=== PATIENT | female | born 1990 | race Caucasian/White ===

== ENCOUNTER 2017-01-27 06:59 | Emergency (ER) | payer OTHER ==
[~2017-01-27] VITALS: Ht 160 cm; Wt 97.5 kg
[~2017-01-27 06:59] MED LIST: IBUPROFEN 600600 M1 PO; NAPROSYN500 MG PO; PHENERGAN 25 MG25 M1 PO; TRINATE TABLET1 TAB PO
[2017-01-27 07:30] LABS: ABSOLUTE NEUTROPHILS 3.6 thou/uL (1.4-8.2); BASOPHILS 1.4 % (0.0-2.0); EOSINOPHILS 3.6 % (0.0-3.0); HEMATOCRIT 38.7 % (37.0-47.0); HEMOGLOBIN 13.2 gm/dL (12.0-15.0); LYMPHOCYTES 32.1 % (24.0-44.0); MCH 28.6 pg (26.0-34.0); MCHC 34.2 g/dL (28.0-37.0); MCV 83.6 fL (80.0-100.0); MONOCYTES 7.8 % (1.0-8.0); PLATELET COUNT 247 thou/uL (150-400); POLYS 55.1 % (36.0-66.0); RBC 4.63 mil/uL (4.20-5.00); RDW 13.8 % (10.5-14.5); WBC 6.6 thou/uL (4.0-11.0)
[2017-01-27 07:38] LABS: MANUAL DIFF NO
[2017-01-27] MEDS ORDERED: NAPROSYN500 MG PO (08:50)
[2017-01-27 08:55] VITALS: BP 101/56
== END 2017-01-27 09:07 | disposition home or self-care (01) ==
LOC: ER 06:59
PROVIDERS: Emergency Medicine
DX: N93.8 Other specified abnormal uterine and vaginal bleeding (principal); N94.6 Dysmenorrhea, unspecified

== ENCOUNTER 2017-04-25 11:13 | Emergency (ER) | payer OTHER ==
[~2017-04-25] VITALS: Ht 160 cm; Wt 97.5 kg
[2017-04-25 12:03] LABS: URINE BILIRUBIN NEGATIVE (Negative); URINE BLOOD NEGATIVE (Negative); URINE CLARITY CLEAR; URINE COLOR YELLOW; URINE GLUCOSE-RANDOM* NEGATIVE (Negative); URINE KETONES NEGATIVE (Negative); URINE LEUKOCYTES NEGATIVE (Negative); URINE NITRITE NEGATIVE (Negative); URINE PROTEIN (DIPSTICK) NEGATIVE (Negative); URINE SPECIFIC GRAVITY >= 1.030 (1.005-1.035); URINE UROBILINOGEN 0.2 E.U./dl (0.2-1.0)
[2017-04-25] MEDS ORDERED: NAPROSYN500 MG PO (12:27)
[2017-04-25] MEDS ORDERED: NORFLEX100 MG PO (12:27)
== END 2017-04-25 12:45 | disposition home or self-care (01) ==
LOC: ER 11:13
PROVIDERS: Physician Assistant
DX: S16.1XXA Strain of muscle, fascia and tendon at neck level, initial encounter (principal); S39.012A Strain of muscle, fascia and tendon of lower back, initial encounter; V43.52XA Car driver injured in collision with other type car in traffic accident, initial encounter; Y93.89 Activity, other specified; Y92.89 Other specified places as the place of occurrence of the external cause; Y99.8 Other external cause status

== ENCOUNTER 2018-01-26 12:29 | Emergency (ER) | payer OTHER ==
[~2018-01-26] VITALS: Ht 160 cm; Wt 135.8 kg
[~2018-01-26 12:29] MED LIST changes: +NORFLEX100 MG PO
[2018-01-26 12:56] LABS: URINE BILIRUBIN NEGATIVE (Negative); URINE BLOOD 3+ (Negative); URINE CLARITY CLEAR; URINE COLOR YELLOW; URINE GLUCOSE-RANDOM* NEGATIVE (Negative); URINE KETONES NEGATIVE (Negative); URINE NITRITE-REFLEX NEGATIVE (Negative); URINE PROTEIN (DIPSTICK) NEGATIVE (Negative); URINE SPECIFIC GRAVITY <= 1.005 (1.005-1.035); URINE UROBILINOGEN 0.2 E.U./dl (0.2-1.0)
[2018-01-26 13:00] LABS: URINE LEUKOCYTES-REFLEX TRACE (Negative)
[2018-01-26 13:25] LABS: SQUAMOUS 4-10 Moderate /LPF (0-3)
[2018-01-26 13:25] LABS: ABSOLUTE NEUTROPHILS 3.5 thou/uL (1.4-8.2); BASOPHILS 1.2 % (0.0-2.0); HEMATOCRIT 40.4 % (37.0-47.0); HEMOGLOBIN 13.9 gm/dL (12.0-15.0); LYMPHOCYTES 35.7 % (24.0-44.0); MCH 29.4 pg (26.0-34.0); MCHC 34.4 g/dL (28.0-37.0); MCV 85.7 fL (80.0-100.0); MONOCYTES 6.3 % (1.0-8.0); PLATELET COUNT 306 thou/uL (150-400); POLYS 52.8 % (36.0-66.0); RBC 4.71 mil/uL (4.20-5.00); RDW 13.9 % (10.5-14.5); WBC 6.6 thou/uL (4.0-11.0)
[2018-01-26 13:26] LABS: BACTERIA-REFLEX 1-9 Few /HPF (None Seen); CASTS None Seen /LPF (None Seen); CRYSTALS None Seen /LPF (None Seen)
[2018-01-26 13:27] LABS: URINE WBC-REFLEX 0-5 Rare /HPF (0-5)
[2018-01-26 13:50] LABS: CALCIUM 8.8 mg/dL (8.5-10.1); CREATININE 0.7 mg/dL (0.6-1.0); POTASSIUM 3.9 mmol/L (3.5-5.1)
[2018-01-26] MEDS ORDERED: IBUPROFEN 600600 M1 PO (14:05)
[2018-01-26 14:33] VITALS: BP 139/73
== END 2018-01-26 14:35 | disposition home or self-care (01) ==
LOC: ER 12:29
PROVIDERS: Nurse Practitioner Family
DX: O03.9 Complete or unspecified spontaneous abortion without complication (principal); Z3A.01 Less than 8 weeks gestation of pregnancy

== ENCOUNTER 2018-05-28 17:44 | Emergency (ER) | payer OTHER ==
[~2018-05-28] VITALS: Ht 160 cm; Wt 97.5 kg
[2018-05-28 19:24] VITALS: BP 142/86
== END 2018-05-28 19:25 | disposition home or self-care (01) ==
LOC: ER 17:44
DX: M25.532 Pain in left wrist (principal); M79.671 Pain in right foot; V49.49XA Driver injured in collision with other motor vehicles in traffic accident, initial encounter; Y93.89 Activity, other specified; Y92.89 Other specified places as the place of occurrence of the external cause; Y99.8 Other external cause status

== ENCOUNTER 2020-12-09 21:37 | Emergency (ER) | payer MEDICAID ==
[~2020-12-09] VITALS: Ht 160 cm; Wt 140.6 kg
[2020-12-09 21:50] VITALS: BP 149/86
[2020-12-09] MEDS ORDERED: DOXYCYCLINE 10100 MG PO (22:12)
== END 2020-12-09 22:22 | disposition home or self-care (01) ==
LOC: ER 21:37
DX: L03.116 Cellulitis of left lower limb (principal)